=== PATIENT | male | born 1995 | race Hispanic/Latino ===

== ENCOUNTER 2018-12-06 16:36 | Emergency (ER) | payer BC ==
[2018-12-06] MEDS ORDERED: Metoclopramide HCl 10 MG/2 ML VIAL ONE (18:10)
[2018-12-06] MEDS ORDERED: diphenhydrAMINE 12.5 MG/5 ML UDCUP ONE (18:10)
[2018-12-06] MEDS ORDERED: diphenhydrAMINE 50 MG/ML VIAL ONE (18:11)
== END 2018-12-06 20:10 | disposition home or self-care (01) ==
LOC: ERS 16:36
DX: R51 Headache (principal)
CPT/HCPCS: 96365; 96375; J1200; J2765; Q0163

== ENCOUNTER 2020-02-11 14:55 | Emergency (ER) | payer BC ==
[2020-02-11 22:18] LABS: SARS-CoV-2 MS2 Positive; SARS-CoV-2 N Gene Positive; SARS-CoV-2 S Gene Positive; SARS-CoV-2 by NAA DETECTED (NotDetected); SARS-CoV-2 orf1ab Positive
== END 2020-02-11 15:50 | disposition home or self-care (01) ==
LOC: ERS 14:55
DX: U07.1 COVID-19 (principal)
CPT/HCPCS: 87635; 99283; U0003